=== PATIENT | female | born 1990 | race Caucasian/White ===

== ENCOUNTER 2022-03-21 07:19 | Inpatient (IN) | payer SELFPAY, OTHER ==
[2022-03-21] VITALS (28 sets, daily range): BP systolic 97–142; BP diastolic 53–72; PULSE 74–126; RESP 16; TEMP 36.6–37.4; O2SAT 81–99; BMI 25.3
[2022-03-21 07:22] LABS: ROM Internal Control Test YES-OK TO RESULT pt. (Internal QC)
[2022-03-21 07:24] LABS: ROM Patient Test POSITIVE (Negative)
[2022-03-21 08:12] LABS: Mucous, Urine 0 SEEN /hpf (<or=2+)
[2022-03-21] MEDS: Lactated Ringers 1,000 ML 50 ML IV (08:16)
[2022-03-21] MEDS: Betamethasone/Betamethasone 30 MG/5 ML Vial 12 MG IM (08:19)
[2022-03-21 08:35] LABS: Amphetamine Urine VISTA NEGATIVE (<1000 ng/mL); Barbiturate Urine VISTA NEGATIVE (< 200 ng/mL); Benzodiazepine Urine VISTA NEGATIVE (< 200 ng/mL); Cocaine Urine VISTA NEGATIVE (< 300 ng/mL); Ecstacy Urine VISTA NEGATIVE (< 500 ng/mL); Methadone Urine VISTA NEGATIVE (< 300 ng/mL); PCP Urine VISTA NEGATIVE (< 25 ng/mL); THC Urine VISTA NEGATIVE (< 50 ng/mL); Vista UDS pH Range 7
[2022-03-21 08:45] LABS: Color, Urine Yellow (Yellow); Glucose, Dipstick Normal (Normal); Ketone-Dipstick Negative (Negative); Leukocyte Esterase-Dipstick 25 /ul (Negative); Nitrite-Dipstick Negative (Negative); Occult Blood-Urine 250 /ul (Negative); Protein-Dipstick Negative (Negative); Urine Bilirubin Dipstick Negative (Negative); Urine Clarity Clear (Clear); Urine Urobilinogen Normal (Normal)
[2022-03-21 08:47] LABS: Absolute Lymphocyte Count 1.83 X10^3/uL (0.83-4.51); Absolute Neutrophil Count 7.5 X10^3/uL (2.0-7.7); Basophil# 0.05 X10^3/uL; Basophil% 0.5 % (0-1); Eosinophil# 0.05 X10^3/uL; Eosinophils% 0.5 % (0-5); Hematocrit 35.7 % (37-47); Hemoglobin 12.1 g/dL (12.0-15.0); Lymphocyte # 1.83 X10^3/ul (0.83-4.51); Lymphocyte % 17.8 % (19-41); Mean Corp Hgb Conc 33.9 g/dL (32-36); Mean Corpuscular Hgb 29.9 pg (27.0-32.0); Mean Corpuscular Volume 88.1 fL (81-99); Mean Platelet Vol. 9.4 fl (6.2-12.0); Monocyte# 0.54 X10^3/uL; Monocyte% 5.3 % (0-10); NRBC Flagged by Analyzer 0 % (0-5); Neutrophil # 7.54 X10^3/uL (2.7-7.7); Neutrophil % 73.5 % (47-70); Platelet Count 180 K/mm3 (150-450); RBC Distribution Width CV 14.3 % (11.6-14.6); RBC Distribution Width SD 45.7 fl (35.1-43.9); Red Blood Count 4.05 M/mm3 (4.2-5.4); White Blood Count 10.3 K/mm3 (4.4-11.0)
[2022-03-21 08:59] LABS: Red Blood Cells-Urine 0-5 SEEN /hpf (0-5); Squamous Epithelial Cells - UA 0-5 SEEN /hpf (5-10); White Blood Cells 0-5 SEEN /hpf (0-5)
[2022-03-21 09:00] LABS: Bacteria RARE /hpf (None Seen)
--- NOTE | 2022-03-21 09:10 | PCM.HP.OB ---
HPI - General General Date of Admission: 03/21/22 HPI Narrative ARTUR RAY, is a 31 F who presents with c/o leaking of fluid. She has care with Emily Warner and was planning a homebirth. Maternal Data Information ARNALDO Calculator Estimated Delivery Date Method Current WG Current Estimate 04/19/22 Manual 35w 6d PFSH PFSH Medical History (Updated 03/21/22 @ 09:[address] Qing Murphy MD) Patient denies medical problems Medical History no medical history Allergy/AdvReac Type Severity Reaction Status Date / Time No Known Allergies Allergy Verified 03/21/22 08:01 Family History no significant family his Surgical History (Updated 03/21/22 @ 09:[address] Qing Murphy MD) No history of previous surgery Surgical History no surgical history History 4 Elective abortions Hx Para 3 Spontaneous abortions Hx # Term Pregnancies 3 Ectopic pregnancies Hx # Pregnancies Multiple births # of living children 3 Past Pregnancies Del. Date Name GA/Weeks Outcome Route Bth Weight Infant Gen Labor Lgth Anesthesia Del Locatn Provider FOB Unknown live - full term 8lb2oz Male none Unknown live - full term 7lb4oz Female none 05/21/20 live - full term 7lb6oz Male none NST FHR Rate Baby A Baseline: 140 Variability:: Minimal Accelerations:: 15 x 15 Decelerations:: Variable NST Reactive:: Yes FHR Category:: Category II Uterine Activity:: 2/10 Vital Signs Vital Signs Vital Signs: 03/21/22 06:54 03/21/22 07:24 03/21/22 07:25 Temperature 99.1 F Temperature Source Temporal Pulse Rate 105 H 104 H Blood Pressure 122/71 H 97/53 L BP Systolic 122 97 BP Diastolic 71 53 Pulse Ox 98 97 03/21/22 09:01 Temperature Temperature Source Pulse Rate 88 Blood Pressure BP Systolic BP Diastolic Pulse Ox 99 Weight Weight: 67 kg Body Mass Index (BMI) 25.3 Physical Exam Const alert, oriented x3 and no apparent distress HEENT normocephalic Resp normal respiratory effort, normal air movement and clear to auscultation bilaterally Cardio regular rate and regular rhythm GI normal to inspection, nondistended, normoactive bowel sounds, soft to palpation, non-tender and non-distended Inspection: gravid Narrative: SVE deferred - pt 4cm at nurse exam on admission Labs Labs Labs: Blood Type Pending Antibody Screen Pending Hct 35.7 % (37-47) L Hgb 12.1 g/dL (12.0-15.0) Syphilis Total Ab Pending Rubella IgG Antibody Pending Hep Bs Antigen Pending HIV 1&2 Antibody Pending Group B Strep DNA Pending Assessment & Plan (1) 35 weeks gestation of : (2) premature rupture of membranes (PPROM) with onset of labor within 24 hours of rupture in third trimester, antepartum: PLAN: GBS unknown - ppx labs obtained Cat II FHR US confirms cephalic presentation Betamethasone
[2022-03-21] MEDS: Lactated Ringers 500 ML 999 ML IV (09:30)
--- NOTE | 2022-03-21 09:55 | PN.OBGYN_ITS ---
Subjective Subjective Contractions intensify. Stefany feels some pressure. Objective Data Objective Data Vital Signs: Vital Signs Temp Pulse BP Pulse Ox 98.7 F 92 108/58 L 81 03/21/22 09:14 03/21/22 09:28 03/21/22 09:14 03/21/22 09:50 Weight: 67 kg Body Mass Index (BMI) 25.3 Intake & Output: Intake and Output for Last 24 Hours 03/19/22 03/20/22 03/21/22 23:59 23:59 23:59 Intake Total 105 / 105 Output Total 750 / 750 Balance -645 / -645 Lab / Micro Data Result Diagrams: 03/21/22 08:30 Labs: Laboratory Results - last 24 hr 03/21/22 07:00: Vag Amniotic Fld Detect POSITIVE H 03/21/22 07:45: WBC Cancelled, Corrected WBC Cancelled, RBC Cancelled, Hgb Cancelled, Hct Cancelled, MCV Cancelled, MCH Cancelled, MCHC Cancelled, RDW Std Deviation Cancelled, RDW Coeff of Yovani Cancelled, Plt Count Cancelled, MPV Cancelled, Immature Gran % (Auto) Cancelled, Neut % (Auto) Cancelled, Lymph % (Auto) Cancelled, [place] % (Auto) Cancelled, Eos % (Auto) Cancelled, Baso % (Auto) Cancelled, Absolute Neuts (auto) Cancelled, Absolute Lymphs (auto) Cancelled, Total Counted Cancelled, Neutrophils % (Manual) Cancelled, Band Neutrophils % Cancelled, Lymphocytes % (Manual) Cancelled, Monocytes % (Manual) Cancelled, Eosinophils % (Manual) Cancelled, Basophils % (Manual) Cancelled, Metamyelocytes % Cancelled, Myelocytes % Cancelled, Promyelocytes % Cancelled, Blast Cells % Cancelled, Plasma Cell % (Manual) Cancelled, Other Cells % Cancelled, Nucleated RBC % Cancelled, Nucleated RBCs/100 WBC Cancelled, Differential Comment Cancelled, Diff Path Review Cancelled, Hypersegmented Neuts Cancelled, Atypical Lymphocytes Cancelled, Reactive Lymphocytes Cancelled, Smudge Cells Cancelled, Toxic Granulation Cancelled, Toxic Vacuolation Cancelled, Dohle Bodies Cancelled, Leeroy Rods Cancelled, Platelet Estimate Cancelled, Plt Morphology Comment Cancelled, RBC Morphology Cancelled, Polychromasia Cancelled, Hypochromasia Cancelled, Poikilocytosis Cancelled, Basophilic Stippling Cancelled, Anisocytosis Cancelled, Microcytosis Cancelled, Macrocytosis Cancell ed, Spherocytes Cancelled, Sickle Cells Cancelled, Target Cells Cancelled, Tear Drop Cells Cancelled, Ovalocytes Cancelled, Stomatocytes Cancelled, [place] Bodies Cancelled, Vanessa Cells Cancelled, Bite Cells Cancelled, Crenated Cell Cancelled, Acanthocytes (Spur) Cancelled, Rouleaux Cancelled, Schistocytes Cancelled 03/21/22 08:05: Urine Color Yellow, Urine Clarity Clear, Urine pH 7.0, Ur Specific [place] 1.010, Urine Protein Negative, Urine Glucose (UA) Normal, Urine Ketones Negative, Urine Occult Blood 250 H, Urine Nitrite Negative, Urine Jaskaran irubin Negative, Urine Urobilinogen Normal, Ur Leukocyte Esterase 25 H, Urine RBC 0-5 SEEN, Urine WBC 0-5 SEEN, Ur Squamous Epith Cells 0-5 SEEN, Urine Bacteria RARE, Urine Mucus 0 SEEN 03/21/22 08:05: Urine Opiates Screen NEGATIVE, Urine Methadone Screen NEGATIVE, Ur Barbiturates Screen NEGATIVE, Ur Phencyclidine Scrn NEGATIVE, Ur Amphetamines Screen NEGATIVE, MDMA (Ecstasy) Screen NEGATIVE, U Benzodiazepines Scrn NEGATIVE, Urine Cocaine Screen NEGATIVE, U Cannabinoids Screen NEGATIVE, Ur Drug Screen Comment 03/21/22 08:30: WBC 10.3, RBC 4.05 L, Hgb 12.1, Hct 35.7 L, MCV 88.1, MCH 29.9, MCHC 33.9, RDW Std Deviation 45.7 H, RDW Coeff of Yovani 14.3, Plt Count 180, MPV 9.4, Immature Gran % (Auto) 2.400 H, Neut % (Auto) 73.5 H, Lymph % (Auto) 17.8 L , [place] % (Auto) 5.3, Eos % (Auto) 0.5, Baso % (Auto) 0.5, Absolute Neuts (auto) 7.5, Absolute Lymphs (auto) 1.83, Nucleated RBC % 0 Micro: Microbiology 03/21/22 07:45 Nasal Secretion SARS-CoV-2 Antigen (Rapid) - Final Physical Exam Narrative GEN - NAD, breathing through contractions FHR - 150 bpm, frequent loss of contact due to maternal movement TOCO 2/10 min SVE 6.5/80/-2, soft, forebag present Assessment & Plan (1) premature rupture of membranes (PPROM) with onset of labor within 24 hours of rupture in third trimester, antepartum: PLAN: GBS unknown - ppx labs obtained Cat II FHR - switch to [employer] monitor (2) 35 weeks gestation of :
[2022-03-21 10:14] LABS: Rubella IgG Non-Reactive (Nonreactive); Syphilis Antibodies Non-reactive
[2022-03-21 10:24] LABS: Group B Strep DNA By PCR POSITIVE (Negative); Probe Check PASS
[2022-03-21 10:46] LABS: HIV - WCH Non-Reactive (Nonreactive); Hepatitis B Surface Antigen Non-Reactive (Nonreactive); Hepatitis C Antibody Non-Reactive (Nonreactive)
[2022-03-21 10:57] LABS: Chlamydia Trachomatis by PCR Negative (Negative); Neisserai gonorrhoeae by PCR Negative (Negative); Probe Check PASS; Sample Adequacy Control PASS; Specimen Processing Control PASS
[2022-03-21] MEDS: Penicillin G 3,000,000 Units 50 ML 100 UNITS IV (12:03)
--- NOTE | 2022-03-21 15:17 | PN.OBGYN_ITS ---
Subjective Subjective Contractions intensify. Objective Data Objective Data Vital Signs: Vital Signs Temp Pulse BP Pulse Ox 98.2 F 117 H 129/72 H 99 03/21/22 15:06 03/21/22 15:06 03/21/22 15:06 03/21/22 15:04 Weight: 67 kg Body Mass Index (BMI) 25.3 Intake & Output: Intake and Output for Last 24 Hours 03/19/22 03/20/22 03/21/22 23:59 23:59 23:59 Intake Total 655 / 655 Output Total 2300 / 2300 Balance -1645 / -1645 Lab / Micro Data Result Diagrams: 03/21/22 08:30 Labs: Laboratory Results - last 24 hr 03/21/22 07:00: Vag Amniotic Fld Detect POSITIVE H 03/21/22 07:00: Group B Strep DNA POSITIVE H, Specimen Comment Not Reportable 03/21/22 07:45: WBC Cancelled, Corrected WBC Cancelled, RBC Cancelled, Hgb Cancelled, Hct Cancelled, MCV Cancelled, MCH Cancelled, MCHC Cancelled, RDW Std Deviation Cancelled, RDW Coeff of Yovani Cancelled, Plt Count Cancelled, MPV Cancelled, Immature Gran % (Auto) Cancelled, Neut % (Auto) Cancelled, Lymph % (Auto) Cancelled, [place] % (Auto) Cancelled, Eos % (Auto) Cancelled, Baso % (Auto) Cancelled, Absolute Neuts (auto) Cancelled, Absolute Lymphs (auto) Cancelled, Total Counted Cancelled, Neutrophils % (Manual) Cancelled, Band Neutrophils % Cancelled, Lymphocytes % (Manual) Cancelled, Monocytes % (Manual) Cancelled, Eosinophils % (Manual) Cancelled, Basophils % (Manual) Cancelled, Metamyelocytes % Cancelled, Myelocytes % Cancelled, Promyelocytes % Cancelled, Blast Cells % Cancelled, Plasma Cell % (Manual) Cancelled, Other Cells % Cancelled, Nucleated RBC % Cancelled, Nucleated RBCs/100 WBC Cancelled, Differential Comment Cancelled, Diff Path Review Cancelled, Hypersegmented Neuts Cancelled, Atypical Lymphocytes Cancelled, Reactive Lymphocytes Cancelled, Smudge Cells Cancelled, Toxic Granulation Cancelled, Toxic Vacuolation Cancelled, Dohle Bodies Cancelled, Leeroy Rods Cancelled, Platelet Estimate Cancelled, Plt Morphology Comment Cancelled, RBC Morphology Cancelled, Polychromasia Cancelled, Hypochromasia Cancelled, Poikilocytosis Cancelled, Basophilic Stippling Cancelled, Anisocytosis Cancelled, Microcytosis Cancelled, Macrocytosis Cance lled, Spherocytes Cancelled, Sickle Cells Cancelled, Target Cells Cancelled, Tear Drop Cells Cancelled, Ovalocytes Cancelled, Stomatocytes Cancelled, [place] Bodies Cancelled, [place] Cells Cancelled, Bite Cells Cancelled, Crenated Cell Cancelled, Acanthocytes (Spur) Cancelled, Rouleaux Cancelled, Schistocytes Cancelled 03/21/22 07:45: Syphilis Total Ab Non-reactive, Rubella IgG Antibody Non- Reactive 03/21/22 07:45: Blood Type O POSITIVE, Antibody Screen NEGATIVE 03/21/22 07:45: Hep Bs Antigen Non-Reactive, Hepatitis C Antibody Non-Reactive, HIV 1&2 Antibody Non-Reactive 03/21/22 08:05: Urine Color Yellow, Urine Clarity Clear, Urine pH 7.0, Ur Specific [place] 1.010, Urine Protein Negative, Urine Glucose (UA) Normal, Urine Ketones Negative, Urine Occult Blood 250 H, Urine Nitrite Negative, Urine Bilirubin Negative, Urine Urobilinogen Normal, Ur Leukocyte Esterase 25 H, Urine RBC 0-5 SEEN, Urine WBC 0-5 SEEN, Ur Squamous Epith Cells 0-5 SEEN, Urine Bacteria RARE, Urine Mucus 0 SEEN 03/21/22 08:05: Urine Opiates Screen NEGATIVE, Urine Methadone Screen NEGATIVE, Ur Barbiturates Screen NEGATIVE, Ur Phencyclidine Scrn NEGATIVE, Ur Amphetamines Screen NEGATIVE, MDMA (Ecstasy) Screen NEGATIVE, U Benzodiazepines Scrn NEGATIVE , Urine Cocaine Screen NEGATIVE, U Cannabinoids Screen NEGATIVE, Ur Drug Screen Comment 03/21/22 08:05: Chlam trachomat DNA PCR Negative, N.gonorrhoeae DNA (PCR) Negative 03/21/22 08:30: WBC 10.3, RBC 4.05 L, Hgb 12.1, Hct 35.7 L, MCV 88.1, MCH 29.9, MCHC 33.9, RDW Std Deviation 45.7 H, RDW Coeff of Yovani 14.3, Plt Count 180, MPV 9.4, Immature Gran % (Auto) 2.400 H, Neut % (Auto) 73.5 H, Lymph % (Auto) 17.8 L , [place] % (Auto) 5.3, Eos % (Auto) 0.5, Baso % (Auto) 0.5, Absolute Neuts (auto) 7.5, Absolute Lymphs (auto) 1.83, Nucleated RBC % 0 Micro: Microbiology 03/21/22 07:45 Nasal Secretion SARS-CoV-2 Antigen (Rapid) - Final Physical Exam Narrative GEN - NAD, breathing through contractions FHR 140, moderate variability, + accelerations, + variable deceleration TOCO 5/10 min SVE 6.5/80/0, soft, midposition Assessment & Plan (1) premature rupture of membranes (PPROM) with onset of labor within 24 hours of rupture in third trimester, antepartum: PLAN: AROM of forebag with clear fluid Anticipate GBS positive - continue Abx (2) 35 weeks gestation of :
[2022-03-21] MEDS: Oxytocin 30 units/NS 500 ml 30 UNITS/500 ML IV.SOLN 334 UNITS IV (16:52)
--- NOTE | 2022-03-21 17:19 | EX.PCM.OBRPT ---
Assessment & Plan (1) (spontaneous vaginal delivery): (2) delivery, delivered: Maternal Data Information ARNALDO Calculator Estimated Delivery Date Method Current WG Current Estimate 04/19/22 Manual 36w 1d Vaginal Delivery Maternal Presentation Maternal Presentation: Active Labor and Spontaneous Rupture of Membranes Operative Information Date of Procedure: 03/21/22 Pre-Operative Diagnosis: 1. 35 6/7 weeks gestation 2. PPROM Post-Operative Diagnosis: 1. 35 6/7 weeks gestation 2. PPROM Surgery / Procedure Performed: Spontaneous Vaginal Delivery Type of Anesthesia: None Estimated Blood Loss: 200 ml Time of Delivery: 16:49 Findings Description of Procedure: Patient was fully dilated and +3 station. She pushed to deliver a female in direct OP over an intact perineum. The was placed on maternal abdomen further attended by nursery personnel. The cord was doubly clamped and cut. Cord blood specimen was obtained. Sponge counts were correct x2. Presentation: Vertex (OP) Amniotic Membrane Rupture Type: Spontaneous Amniotic Fluid Description: Clear Specimen(s) Removed: Placenta Cord Vessel Description: 3 Vessels Cord Entanglement: None Infant A Gender: Female (1 minute): 8 (5 minute): 9 Delayed Cord Clamping: Yes Post Vaginal Delivery Medications Given After Delivery: IV Pitocin Episiotomy Description: None Laceration: None Complication Complications: None
[2022-03-22 00:40] VITALS: BP 107/54; PULSE 80; RESP 15; TEMP 36.2; O2SAT 98
[2022-03-22 04:15] VITALS: BP 98/53; PULSE 63; RESP 15; TEMP 36.3; O2SAT 97
[2022-03-22 08:00] VITALS: BP 103/51; PULSE 65; RESP 18; TEMP 36.2
--- NOTE | 2022-03-22 08:32 | PN.OBGYN_ITS ---
Subjective Subjective day 1. Feeling well. Working on nursing. Other babies took a little time to nurse. Lochia minimal. Objective Data Objective Data Vital Signs: Vital Signs Temp Pulse Resp BP Pulse Ox 97.3 F L 63 15 98/53 L 97 03/22/22 04:15 03/22/22 04:15 03/22/22 04:15 03/22/22 04:15 03/22/22 04:15 Oxygen Delivery Method Room Air Weight: 67 kg Body Mass Index (BMI) 25.3 Intake & Output: Intake and Output for Last 24 Hours 03/20/22 03/21/22 03/22/22 23:59 23:59 23:59 Intake Total 1582.50 / 1582.50 Output Total 2300 / 2300 Balance -717.50 / -717.50 Lab / Micro Data Result Diagrams: 03/21/22 08:30 Labs: Laboratory Results - last 24 hr 03/21/22 07:00: Group B Strep DNA POSITIVE H, Specimen Comment Not Reportable 03/21/22 07:45: Syphilis Total Ab Non-reactive, Rubella IgG Antibody Non- Reactive 03/21/22 07:45: Blood Type O POSITIVE, Antibody Screen NEGATIVE 03/21/22 07:45: Hep Bs Antigen Non-Reactive, Hepatitis C Antibody Non-Reactive, HIV 1&2 Antibody Non-Reactive 03/21/22 08:05: Urine Color Yellow, Urine Clarity Clear, Urine pH 7.0, Ur Specific [place] 1.010, Urine Protein Negative, Urine Glucose (UA) Normal, Urine Ketones Negative, Urine Occult Blood 250 H, Urine Nitrite Negative, Urine Bilirubin Negative, Urine Urobilinogen Normal, Ur Leukocyte Esterase 25 H, Urine RBC 0-5 SEEN, Urine WBC 0-5 SEEN, Ur Squamous Epith Cells 0-5 SEEN, Urine Bacteria RARE, Urine Mucus 0 SEEN 03/21/22 08:05: Urine Opiates Screen NEGATIVE, Urine Methadone Screen NEGATIVE, Ur Barbiturates Screen NEGATIVE, Ur Phencyclidine Scrn NEGATIVE, Ur Amphetamines Screen NEGATIVE, MDMA (Ecstasy) Screen NEGATIVE, U Benzodiazepines Scrn NEGATIVE, Urine Cocaine Screen NEGATIVE, U Cannabinoids Screen NEGATIVE 03/21/22 08:05: Chlam trachomat DNA PCR Negative, N.gonorrhoeae DNA (PCR) Negative 03/21/22 08:30: WBC 10.3, RBC 4.05 L, Hgb 12.1, Hct 35.7 L, MCV 88.1, MCH 29.9, MCHC 33.9, RDW Std Deviation 45.7 H, RDW Coeff of Yovani 14.3, Plt Count 180, MPV 9.4, Immature Gran % (Auto) 2.400 H, Neut % (Auto) 73.5 H, Lymph % (Auto) 17.8 L , [place] % (Auto) 5.3, Eos % (Auto) 0.5, Baso % (Auto) 0.5, Absolute Neuts (auto) 7.5, Absolute Lymphs (auto) 1.83, Nucleated RBC % 0 Micro: Microbiology 03/21/22 07:45 Nasal Secretion SARS-CoV-2 Antigen (Rapid) - Final Physical Exam Const alert, oriented x3 and no apparent distress HEENT normocephalic Head and Scalp: atraumatic Neck full ROM Resp normal respiratory effort Cardio regular rate GI normal to inspection, nondistended, normoactive bowel sounds GI Narrative: Uterus 2 cm below umbilicus Back/Spine normal ROM Extremity normal to inspection Extremity Narrative: Minimal pedal edema Neuro no focal motor deficits and no sensory deficits noted Psych mental status grossly normal and affect normal Assessment & Plan (1) delivery, delivered: PLAN: day 1 status post . Received GBS prophylaxis. Breast-feeding. Desires home-going today. We will plan for discharge as long as baby is okay to go home, otherwise home tomorrow morning. Patient plans to follow-up with her saddle and harness maker for visit. (2) (spontaneous vaginal delivery):
--- NOTE | 2022-03-22 08:33 | PCM.DC ---
Discharge Instructions Diet Discharge Diet: No restrictions Activity Discharge Activity: Return to Normal Activity and May Shower May resume sexual activity in: 4-6 weeks Weight Bearing Status: Weight bearing as tolerated Lifting Restrictions: No greater than 25 pounds Dressing / Incision Call your doctor if you observe: Fever of 101 or Higher, Change in Color, Inability to urinate, Using more than 1 pad per hour, Shortness of breath, Dizziness, Swelling in the ankles, Chest pain and Calf discomfort Follow Up Care Please Follow Up With: Qing Carty MD When: 2-week telehealth appointment and 6-week visit Okay for visit with blending machine operator Test Results: Test results from this visit will be discussed in further detail at your follow-up appointment, if applicable. Discharge Plan Admission Admit Date/Time: 03/21/22 07:19 Primary Reason for Your Visit: Vaginal delivery Attending Provider: Qing Carty Primary Care Provider: Care Physician,No Primary Discharge Orders/Prescriptions Prescriptions: No Action 1 1 mg Tablet 1 tab PO DAILY RF: 0 Referrals / Follow Up: Qing Carty MD [STAFF PHYSICIAN] - Within 1 Month (Follow up with Emily Warner or Dr. Yandel Murphy in 4-6 weeks.) Care Physician,No Primary [Primary Care Provider] - Disposition Disposition (needs filled in before D/C Order can be placed): Home, Self Care
[2022-03-22 12:00] VITALS: BP 119/51; PULSE 66; RESP 16; TEMP 36.1
[2022-03-22 16:30] VITALS: BP 127/69; PULSE 91; RESP 16; TEMP 36.2
[2022-03-22 20:18] VITALS: BP 97/44; PULSE 71; RESP 16; TEMP 36.2
[2022-03-23 01:05] VITALS: BP 96/54; PULSE 67; RESP 18; TEMP 36.4
--- NOTE | 2022-03-23 08:38 | PCM.PN.OB ---
Subjective Subjective No complaints. Feels well. No complaints. Denies heavy lochia. She continues . Her infant her is being transferred to [facility] for a bowel issue. Objective Data Objective Data Vital Signs: Vital Signs Temp Pulse Resp BP Pulse Ox 97.5 F L 67 18 96/54 L 97 03/23/22 01:05 03/23/22 01:05 03/23/22 01:05 03/23/22 01:05 03/22/22 04:15 Oxygen Delivery Method Room Air Weight: 67 kg Body Mass Index (BMI) 25.3 Intake & Output: Intake and Output for Last 24 Hours 03/21/22 03/22/22 03/23/22 23:59 23:59 23:59 Intake Total 1582.50 / 1582.50 Output Total 2300 / 2300 Balance -717.50 / -717.50 Lab / Micro Data Result Diagrams: 03/21/22 08:30 Micro: Microbiology 03/21/22 07:45 Nasal Secretion SARS-CoV-2 Antigen (Rapid) - Final Physical Exam Narrative exam deferred as visiting patient in nursery Const alert, oriented x3 and no apparent distress Assessment & Plan (1) (spontaneous vaginal delivery): PLAN: Pt to follow up with Emily Warner her advanced analytics associate Reviewed si/sx requiring MD follow up d/c home
== END 2022-03-23 09:30 | disposition home or self-care (01) | DRG 805 ==
LOC: WPOUT 07:25 → WP 07:25
PROVIDERS: Admitting Provider Obstetrics & Gynecology; Visit Provider Obstetrics & Gynecology
DX: O76 Abnormality in fetal heart rate and rhythm complicating labor and delivery (principal); Z37.0 Single live birth; O60.14X0 Preterm labor third trimester with preterm delivery third trimester, not applicable or unspecified; O42.913 Preterm premature rupture of membranes, unspecified as to length of time between rupture and onset of labor, third trimester; O99.824 Streptococcus B carrier state complicating childbirth; Z3A.36 36 weeks gestation of pregnancy
CPT/HCPCS: 59025; 59050; 80307; 81001; 84112; 85025; 86703; 86762; 86780; 86803; 86850; 86900; 86901; 87340; 87426; 87491; 87591; 87653; 99218; J7120; G0378; J0702

== ENCOUNTER 2024-06-05 22:59 | Emergency (ER) | payer OTHER, SELFPAY ==
[2024-06-05 23:00] VITALS: BP 114/74; PULSE 117; RESP 24; TEMP 36.1; O2SAT 100; BMI 23.0
[2024-06-05 23:04] VITALS: BP 114/74; PULSE 120; RESP 29; TEMP 36.1; O2SAT 100
--- NOTE | 2024-06-05 23:14 | CT_ITS ---
EXAM: CT Abdomen And Pelvis W/ Contrast Injection HISTORY: abd pain TECHNIQUE: Routine protocol CT abdomen pelvis. IV Contrast: IV 100mL Isovue-370 . Oral Contrast: without. Sagittal and coronal images were reconstructed. RADIATION DOSAGE (If Supplied By Facility): CTDIvol = ( 10.34 ) mGy, DLP = ( 513.00 ) mGycm Individualized dose optimization techniques were used for this CT. COMPARISON: None. LIMITATIONS: None. FINDINGS: LOWER CHEST: Lung bases are clear. LIVER: Unremarkable. GALLBLADDER/BILE DUCTS: Unremarkable. PANCREAS: Unremarkable. SPLEEN: Unremarkable. ADRENAL GLANDS: Unremarkable. KIDNEYS / URETERS: Unremarkable. BOWEL / MESENTERY: Mild wall thickening of small bowel in the mid to lower abdomen with prominent folds. Stranding in the adjacent mesentery. No bowel obstruction. APPENDIX: Identified and normal. No evidence of acute appendicitis. PERITONEUM: No free air. No free fluid. VESSELS: Abdominal aorta is normal caliber. RETROPERITONEUM: Unremarkable. REPRODUCTIVE ORGANS: Unremarkable. BLADDER: Unremarkable. ABDOMINAL WALL: Unremarkable. BONES: No acute abnormality. OTHER: None. CT/Abdomen/Pelvis W IV Cont ONLY IMPRESSION: Wall thickening of distal small bowel consistent with acute enteritis most likely inflammatory or infectious etiology. Electronically Signed: Kori Perkins MD at 0:31 EDT ,
[2024-06-05] MEDS: Ondansetron 4 MG/2 ML Vial IV (23:24)
[2024-06-05] MEDS: 0.9% Normal Saline (1000mL) 1,000 ML 999 ML IV (23:24)
[2024-06-05] MEDS: Morphine 4 MG/ML Syringe IV (23:24)
[2024-06-05 23:25] LABS: Absolute Lymphocyte Count 0.64 X10^3/uL (0.83-4.51); Absolute Neutrophil Count 7.3 X10^3/uL (2.0-7.7); Basophil# 0.03 X10^3/uL; Basophil% 0.4 % (0-1); Eosinophil# 0.02 X10^3/uL; Eosinophils% 0.2 % (0-5); Hematocrit 40.5 % (37-47); Hemoglobin 13.7 g/dL (12.0-15.0); Lymphocyte # 0.64 X10^3/ul (0.83-4.51); Lymphocyte % 7.5 % (19-41); Mean Corp Hgb Conc 33.8 g/dL (32-36); Mean Corpuscular Hgb 28.9 pg (27.0-32.0); Mean Corpuscular Volume 85.4 fL (81-99); Mean Platelet Vol. 9.5 fl (6.2-12.0); Monocyte# 0.53 X10^3/uL; Monocyte% 6.2 % (0-10); NRBC Flagged by Analyzer 0 % (0-5); Neutrophil # 7.25 X10^3/uL (2.7-7.7); Neutrophil % 85.5 % (47-70); Platelet Count 243 K/mm3 (150-450); RBC Distribution Width CV 12.8 % (11.6-14.6); RBC Distribution Width SD 39.5 fl (35.1-43.9); Red Blood Count 4.74 M/mm3 (4.2-5.4); White Blood Count 8.5 K/mm3 (4.4-11.0)
[2024-06-05 23:31] LABS: Internal QC Validated? YES +Cl - CLEAR BKGD; Pregnancy, Serum, hCG Quali. NEGATIVE Negative; Record Kit Lot#, Serum Preg. 772476
--- NOTE | 2024-06-05 23:35 | EX.ED.DYSGE1 ---
HPI History of Present Illness Chief Complaint: Abd Pain Informant: patient and EMS Narrative Narrative: Patient is a 33-year-old female who reports no significant past medical history. She states that she has had generalized upper abdominal pain has been waxing and waning for 2 weeks. However today she began with worsening abdominal pain and bouts of nausea vomiting and diarrhea. Secondary to the worsening symptoms she presents for evaluation. Patient denies any known sick contacts or history of intestinal disorders such as ulcerative colitis or Crohn's disease or IBS. PFSH [facility] Medical History premature rupture of membranes (PPROM) with onset of labor within 24 hours of rupture in third trimester, antepartum Patient denies medical problems Home Medications ?Medication ?Instructions ?Recorded ?Last Taken ?Type [id number] 1 mg 1 tab PO DAILY 03/21/22 03/20/22 08:00 History tablet dicyclomine 20 mg tablet 20 mg PO 4X/DAY PRN Abdominal 06/06/24 Unknown Rx pain/spasm 7 days #28 tabs potassium chloride 10 mEq 10 meq PO DAILY 7 days #7 caps 06/06/24 Unknown Rx capsule,extended release promethazine 25 mg tablet 25 mg PO TID PRN nausea and 06/06/24 Unknown Rx vomiting 7 days #21 tabs Allergy/AdvReac Type Severity Reaction Status Date / Time No Known Allergies Allergy Verified 06/05/24 23:05 Surgical History No history of previous surgery Social History Smoking Status: Never smoker [facility] ED Constitutional Constitutional ED: Denies chills or fever(s) ENT ENT ED: Denies sore throat Cardiovascular Cardiovascular: Denies chest pain Respiratory/Chest Respiratory/Chest: Denies cough or dyspnea Gastrointestinal Gastrointestinal: Reports abdominal pain, diarrhea, nausea and vomiting Genitourinary Genitourinary ED: Denies dysuria or hematuria Musculoskeletal Musculoskeletal: Denies back pain or myalgias Integumentary Denies rash Neurologic Neurologic: Denies headache(s) Hematologic/Lymphatic Hematologic/Lymphatic: Denies easy bleeding or easy bruising EXAM Physical Exam Const Vital Signs: 06/05/24 23:00 06/05/24 23:04 06/06/24 00:14 Temperature 97.0 F L 97 F L Temperature Source Temporal Temporal Pulse Rate 117 H 120 H 108 H Respiratory Rate 24 H 29 H 18 Blood Pressure 114/74 114/74 97/62 Blood Pressure Mean 87 87 73 Pulse Ox 100 100 97 Oxygen Delivery Method Room Air Room Air Room Air 06/06/24 01:00 06/06/24 01:00 06/06/24 02:00 Temperature 97 F L 98 F Temperature Source Temporal Temporal Pulse Rate 113 H 113 H 106 H Respiratory Rate 21 H 22 H 18 Blood Pressure 112/69 112/69 101/60 Blood Pressure Mean 83 83 73 Pulse Ox 98 98 98 Oxygen Delivery Method Room Air Room Air Room Air 06/06/24 02:00 06/06/24 02:22 Temperature 98 F Temperature Source Pulse Rate 109 H 107 H Respiratory Rate 18 18 Blood Pressure 101/60 101/60 Blood Pressure Mean 73 73 Pulse Ox 98 99 Oxygen Delivery Method Room Air Positive well nourished and well developed General Appearance ED: well developed and pallor HEENT Reports moist mucous membranes HEENT Narrative: No tongue or lip swelling no oral lesions no airway edema or compromise No secondary findings in the posterior pharynx to suggest infection Eyes PERRL and EOMs intact bilaterally General Eye ED: Negative for scleral icterus Neck supple Neck Narrative: No nuchal rigidity or meningeal signs noted Chest Wall palpation of chest normal Resp clear to auscultation bilaterally Resp Narrative: Patient is tachypneic but otherwise breath sounds are clear throughout without nasal flaring or retractions or accessory muscle use Cardio regular rhythm Rate: tachycardic and other Other Details: Tachycardic rate with regular rhythm No murmurs rubs or gallop Radial and carotid pulses equal and symmetric GI non-distended and no masses GI Narrative: Abdomen is soft and nondistended with hyperactive bowel sounds. Patient has pain on palpation in the midepigastric region without voluntary guarding or rigidity. No pulsatile mass. Negative Castellon sign Auscultation: hyperactive bowel sounds Palpation: soft Back/Spine no CVA tenderness Extremity normal to inspection Extremity Narrative: No asymmetric edema no pitting edema negative Homans' sign bilaterally Neuro oriented x3, CN's II-XII intact bilaterally and no sensory deficits noted Sensorium / Orientation: alert Motor Exam: strength 5/5 throughout Psych Psych Narrative: Patient has a flat affect Skin no rashes or lesions noted General Skin Exam: pallor; Negative for jaundice MDM MDM MDM Narrative Medical decision making narrative: Patient arrived to the ER tachycardic but otherwise with stable vitals. With report of intermittent abdominal pain over the past 2 weeks which worsened today and now has led to bouts of nausea vomiting diarrhea there is concern for viral stomach infection such as [place] virus versus rotavirus. There is also potential for colitis versus diverticulitis. Other potential causes of her belly pain could be biliary colic versus acute cholecystitis versus pancreatitis versus spontaneous miscarriage or ectopic . UTI and pyelonephritis are also differential diagnoses. Secondary to his basic labs were obtained along with urine sample and she was sent for a CT scan of her abdomen and pelvis. The patient's test is negative going against spontaneous miscarriage or ectopic . Urine shows no sign of infection going against UTI or pyelonephritis. Her lactic acid is slightly elevated 2.6 and she has moderate amount of ketones in her urine indicating dehydration which would correlate with her bouts of nausea and vomiting otherwise she does not have leukocytosis or acute kidney injury and her CO2 and anion gap are normal going against metabolic acidosis. CTA revealed thickening of the intestinal wall consistent with enteritis which does correlate with her abdominal pain and bouts of vomiting and diarrhea. The patient was given 2 L of IV fluid secondary to her history and exam indicating dehydration. Potassium was slightly down at 2.9 but she does not have physical exam findings of hypokalemia and therefore this can be replaced orally over the course of the next week. At this time as she does not have COLIN or severe electrolyte abnormality or signs of intestinal obstruction or perforation or complication I do not feel there is need for admission. Patient will be given symptomatic medications and is otherwise safe for discharge History & Record Review Discussion w/independent historian: EMS personnel and Patient Lab Data Attestation: I reviewed the patient's lab results. Labs: Laboratory Results - last 24 hr 06/05/24 06/06/24 23:15 00:40 WBC 8.5 RBC 4.74 Hgb 13.7 Hct 40.5 MCV 85.4 MCH 28.9 MCHC 33.8 RDW Std Deviation 39.5 RDW Coeff of Yovani 12.8 Plt Count 243 MPV 9.5 Immature Gran % (Auto) 0.200 Neut % (Auto) 85.5 H Lymph % (Auto) 7.5 L Angelina % (Auto) 6.2 Eos % (Auto) 0.2 Baso % (Auto) 0.4 Absolute Neuts (auto) 7.3 Absolute Lymphs (auto) 0.64 L Nucleated RBC % 0 Sodium 137 Potassium 2.9 L Chloride 106 Carbon Dioxide 22.0 Anion Gap 9 BUN 16 Creatinine 0.66 Estim Creat Clear Calc 106.65 Est GFR (MDRD) Af Amer 135 Est GFR (MDRD) Non-Af 111 BUN/Creatinine Ratio 24.4 H Glucose 153 H Lactic Acid 2.6 H* Calcium 9.2 Total Bilirubin 0.70 Direct Bilirubin 0.20 AST 24 ALT 63 H Alkaline Phosphatase 66 Total Protein 7.2 Albumin 3.9 Globulin 3.3 Lipase 27 Serum , Qual NEGATIVE Urine Color Yellow Urine Clarity Clear Urine pH 5.0 Ur Specific [place] 1.005 Urine Protein Negative Urine Glucose (UA) Normal Urine Ketones 150 A* Urine Occult Blood Negative Urine Nitrite Negative Urine Bilirubin Negative Urine Urobilinogen Normal Ur Leukocyte Esterase Negative Urine RBC 0 SEEN Urine WBC 0 SEEN Ur Squamous Epith Cells 0 SEEN Urine Bacteria 0 SEEN Urine Mucus 0 SEEN Radiography Diagnostic Testing: Clinical Impression(s) from Imaging Studies Abdomen/Pelvis CT 06/05/24 23:14 IMPRESSION: Wall thickening of distal small bowel consistent with acute enteritis most likely inflammatory or infectious etiology. Electronically Signed: Kori Perkins MD at 0:31 EDT , Discharge Plan Triage Chief Complaint: Abd Pain ED Provider: Sebastian Ellis Dx/Rx/DC Orders Clinical Impression: Dehydration, Acute hypokalemia, Nausea vomiting and diarrhea Instructions: Dehydration, ED Gastroenteritis, Viral (Adult) Prescriptions: New promethazine 25 mg tablet 25 mg PO TID PRN (Reason: nausea and vomiting) 7 Days Qty: 21 0RF potassium chloride 10 mEq capsule, extended release 10 meq PO DAILY 7 Days Qty: 7 0RF dicyclomine 20 mg tablet 20 mg PO 4X/DAY PRN (Reason: Abdominal pain/spasm) 7 Days Qty: 28 0RF No Action 1 1 mg Tablet 1 tab PO DAILY Primary Care Provider: Care Physician,No Primary Referrals: Jason Luque MD [Med Staff - Active Staff] - Care Physician,No Primary [Primary Care Provider] - Activity Restrictions/Additional Instructions: Your CT scan showed inflammation of your intestines which is typically caused by a virus. This should resolve on its own within 3 to 7 days. Take the prescribed medication as directed to control your nausea and vomiting. Use the potassium as directed to bring your value up to a normal level. Please keep yourself well-hydrated and return to the ER should you have any further concerns. Print Language: Macedonian Disposition Disposition: Home, Self Care Discharge Date/Time: 06/06/24 02:46
[2024-06-05 23:41] LABS: AST(SGOT) 24 U/L (15-37); Alanine Aminotransfer ALT/SGPT 63 U/L (13-56); Albumin, Serum 3.9 g/dL (3.2-5.0); Alkaline Phosphatase 66 U/L (45-117); Anion Gap 9 (5-15); BUN 16 mg/dL (7-18); BUN/Creat Ratio 24.4 RATIO (10-20); Calcium,Total 9.2 mg/dL (8.5-10.1); Chloride 106 mmol/L (98-107); Creatinine, Serum 0.66 mg/dL (0.55-1.02); EST Glomerular Filtration Rate 111 mL/min (>60); Est Glom Filt Rate - Afr Amer 135 mL/min (>60); Estimated Creatinine Clearance 106.65 ml/min; Globulin 3.3 g/dL (2.2-4.2); Glucose 153 mg/dL (74-106); Lipase 27 U/L (13-75); Potassium 2.9 mmol/L (3.5-5.1); Protein, Total 7.2 g/dL (6.4-8.2); Sodium Level 137 mmol/L (136-145)
[2024-06-05 23:56] LABS: Lactic Acid 2.6 mmol/L (0.4-1.9)
[2024-06-06 00:14] VITALS: BP 97/62; PULSE 108; RESP 18; O2SAT 97
[2024-06-06] MEDS: 0.9% Normal Saline (1000mL) 1,000 ML 999 ML IV (00:44)
[2024-06-06 00:59] LABS: Bacteria 0 SEEN /hpf (None Seen); Glucose, Dipstick Normal (Normal); Leukocyte Esterase-Dipstick Negative /ul (Negative); Mucous, Urine 0 SEEN /hpf (<or=2+); Nitrite-Dipstick Negative (Negative); Occult Blood-Urine Negative /ul (Negative); Protein-Dipstick Negative (Negative); Red Blood Cells-Urine 0 SEEN /hpf (0-5); Specific Gravity, Urine 1.005 (1.002-1.030); Squamous Epithelial Cells - UA 0 SEEN /hpf (5-10); Urine Bilirubin Dipstick Negative (Negative); Urine Urobilinogen Normal (Normal); White Blood Cells 0 SEEN /hpf (0-5)
[2024-06-06 01:00] VITALS: BP 112/69; PULSE 113; RESP 21; RESP 22; TEMP 36.1; O2SAT 98
[2024-06-06 01:02] LABS: Color, Urine Yellow (Yellow); Urine Clarity Clear (Clear)
[2024-06-06 01:03] LABS: Ketone-Dipstick 150 mg/dl (Negative)
[2024-06-06 02:00] VITALS: BP 101/60; PULSE 106; PULSE 109; RESP 18; TEMP 36.6; O2SAT 98
[2024-06-06 02:22] VITALS: BP 101/60; PULSE 107; RESP 18; TEMP 36.6; O2SAT 99
[2024-06-06 03:22] LABS: Reflex Lactate? Y
== END 2024-06-06 02:46 | disposition home or self-care (01) ==
PROVIDERS: Emergency Provider Emergency Medicine; Visit Provider Emergency Medicine
DX: E86.0 Dehydration (principal); E87.6 Hypokalemia; R11.2 Nausea with vomiting, unspecified; R19.7 Diarrhea, unspecified
CPT/HCPCS: 74177; 80048; 80076; 81001; 83605; 83690; 84703; 85025; 96361; 96374; 96375; 96376; 99283; J7030; Q9967; A4216; J2405